=== PATIENT | male | born 1950 | race Caucasian/White ===

== ENCOUNTER 2018-04-17 14:02 | Emergency (ER) | payer OTHER ==
[~2018-04-17] VITALS: Ht 172.7 cm; Wt 78.0 kg
--- NOTE | ~2018-04-17 | EKG ---
[place], [place] ELECTROCARDIOGRAM REPORT NAME: DANNI WEBB UNIT #: [id number] ROOM: DOCTOR: EPIPHANY DRAFT REPORT BIRTHDATE: [birth year] [facility] Test Date: 2018-04-17 Test Time: 14:21:43 Pat Name: DANNI WEBB Department: Room: Gender: [employer]: : 1950 Requested By: HAZEL PAZ Order Number: [id number] Reading MD: Ravinder Manzo MD Measurements Intervals [place] Rate: 49 P: 18 AR: 178 QRS: -13 QRSD: 85 T: 10 QT: 510 QTc: 461 Interpretive Statements Sinus bradycardia Probable left atrial enlargement Left ventricular hypertrophy Electronically Signed On 04-18-2018 8:53:20 PDT by Ravinder Manzo MD CM:EKGRPT:ELECTROCARDIOGRAM REPORT [id number] HAZEL CAMACHO DRAFT REPORT HAZEL PAZ MD
[~2018-04-17 14:02] MED LIST: AMLODIPINE BESY10 MG PO; AMLODIPINE5 MG PO; ECOTRIN81 MG PO; KLOR-CON M2020 MEQ; LEVEMIR10 ML; LISINOPRIL; METFORMIN1000 MG PO; METOPROLOL; MULTIVITAMIN1 CTB; OMEGA 3 FISH OIL; SIMVASTATIN20 MG PO; VITAMIN D3
[2018-04-17 14:32] LABS: BASO % 0.5 % (0.0-1.0); EOS # 0.2 10*3/uL (0.0-0.4); EOS % 2.1 % (1.0-4.0); HEMATOCRIT 38.7 % (42.0-52.0); HEMOGLOBIN 13.7 g/dl (14.0-18.0); LYMPH % 12.9 % (27.0-41.0); MEAN CELL VOLUME 85.6 fl (80.0-94.0); MEAN CORPUSCULAR HGB 30.3 pg (27.0-31.0); MEAN CORPUSCULAR HGB CONC 35.4 g/dl (33.0-37.0); MEAN PLATELET VOLUME 10.4 fl (9.6-12.3); MONO # 0.6 10*3/uL (0.1-1.0); MONO % 8.6 % (3.0-9.0); NEUT # 5.7 10*3/uL (2.3-7.9); NEUT % 75.6 % (47.0-73.0); PLATELET COUNT AUTOMATED 209 10*3/uL (130-400); RED BLOOD COUNT 4.52 10*6/uL (4.50-5.90); RED CELL DISTRI WIDTH 12.3 % (0-14.5); WHITE BLOOD COUNT 7.5 10*3/uL (4.8-10.8)
[2018-04-17 14:41] LABS: ACT PARTIAL THROMBO TIME 25.1 SECONDS (20.8-31.5)
[2018-04-17 14:49] LABS: ALBUMIN 3.9 gm/dl (3.1-4.5); CREATININE 1.48 mg/dL (0.70-1.30); POTASSIUM 3.6 mmol/L (3.5-5.1); TOTAL PROTEIN 7.1 gm/dL (6.4-8.2); TROPONIN I 0.017 ng/ml (<0.045)
[2018-04-17] MEDS ORDERED: GOOD NEIGHBOR M25 M1 PO (15:49)
== END 2018-04-17 15:51 | disposition home or self-care (01) ==
LOC: ED 14:02
PROVIDERS: Emergency Medicine
DX: H81.12 Benign paroxysmal vertigo, left ear (principal); R00.0 Tachycardia, unspecified; Z79.84 Long term (current) use of oral hypoglycemic drugs; Z79.82 Long term (current) use of aspirin; Z79.899 Other long term (current) drug therapy; Z79.4 Long term (current) use of insulin

== ENCOUNTER → 2018-08-15 | Outpatient (CLI) | payer OTHER ==
[~2018-08-15] MED LIST changes: +GOOD NEIGHBOR M25 M1 PO; +KLOR-CON M2020 ME1 PO; +LANTUS SOL100 UNIT/1 SQ; +LISINOPRIL40 MG PO; +Lopressor25 MG PO
== END | disposition home or self-care (01) ==
LOC: US 02:25
DX: N28.1 Cyst of kidney, acquired (principal)

== ENCOUNTER → 2021-01-06 | Outpatient (CLI) | payer OTHER | END | disposition home or self-care (01) | LOC: US 00:18 | PROVIDERS: ATTEND Internal Medicine | DX: N28.1 Cyst of kidney, acquired (principal); N18.31 Chronic kidney disease, stage 3a ==

== ENCOUNTER → 2022-05-14 | Outpatient (CLI) | payer OTHER ==
[2022-05-14 12:46] LABS: HEMATOCRIT 42.4 % (42.0-52.0)
[2022-05-14 12:52] LABS: BILIRUBIN Negative (Negative); BLOOD Negative (Negative); CLARITY Clear (Clear); COLOR Dark Yellow (Yellow); GLUCOSE Trace (Negative); KETONE Trace (Negative); LEUKO ESTERASE Negative (Negative); NITRITE Negative (Negative)
[2022-05-14 13:02] LABS: CREATININE 1.81 mg/dL (0.70-1.30); POTASSIUM 3.9 mmol/L (3.5-5.1)
[2022-05-14 13:17] LABS: HYALINE CAST TNTC; RBC 0-2 rbc/hpf (0-2)
[2022-05-15 12:07] LABS: CREATININE,URINE 193.9 mg/dL (Not Estab.)
== END | disposition home or self-care (01) ==
LOC: LAB 11:49
PROVIDERS: ATTEND Internal Medicine Nephrology
DX: N18.30 Chronic kidney disease, stage 3 unspecified (principal)

== ENCOUNTER → 2022-06-29 | Outpatient (CLI) | payer OTHER ==
[2022-06-29 11:57] LABS: CREATININE 1.71 mg/dL (0.70-1.30); POTASSIUM 4.1 mmol/L (3.5-5.1)
[2022-06-29 12:03] LABS: CREATININE 1.71 mg/dL (0.70-1.30); POTASSIUM 3.9 mmol/L (3.5-5.1); TOTAL PROTEIN 7.1 gm/dL (6.4-8.2)
== END ==
LOC: LAB 11:03
PROVIDERS: Internal Medicine; ATTEND Internal Medicine Nephrology
DX: I12.9 Hypertensive chronic kidney disease with stage 1 through stage 4 chronic kidney disease, or unspecified chronic kidney disease (principal); N18.30 Chronic kidney disease, stage 3 unspecified; E78.5 Hyperlipidemia, unspecified

== ENCOUNTER → 2022-11-11 | Outpatient (CLI) | payer OTHER ==
[2022-11-11 14:00] LABS: BILIRUBIN Negative (Negative); BLOOD Negative (Negative); CLARITY Clear (Clear); COLOR Yellow (Yellow); GLUCOSE Trace (Negative); HEMATOCRIT 44.1 % (42.0-52.0); KETONE Negative (Negative); LEUKO ESTERASE Trace (Negative); NITRITE Negative (Negative); UROBILINOGEN 0.2 E.U./dl (0.0-1.0)
[2022-11-11 14:10] LABS: URINE CREATININE RANDOM 141.26 mg/dL
[2022-11-11 14:35] LABS: POTASSIUM 3.7 mmol/L (3.4-5.1)
[2022-11-11 16:04] LABS: RBC 0-2 rbc/hpf (0-2); WBC 0-2 wbc/hpf (0-5)
== END | disposition home or self-care (01) ==
LOC: LAB 13:33
PROVIDERS: ATTEND Internal Medicine Nephrology
DX: N18.30 Chronic kidney disease, stage 3 unspecified (principal)

== ENCOUNTER → 2023-03-22 | Outpatient (CLI) | payer MEDICARE ==
[2023-03-22 08:51] LABS: BASO # 0.1 10*3/uL (0.0-0.1); BASO % 0.8 % (0.0-1.0); EOS # 0.2 10*3/uL (0.0-0.4); EOS % 2.7 % (1.0-4.0); HEMATOCRIT 47.6 % (42.0-52.0); LYMPH # 1.2 10*3/uL (1.3-4.4); LYMPH % 16.7 % (27.0-41.0); MEAN CELL VOLUME 88.1 fl (80.0-94.0); MEAN CORPUSCULAR HGB 31.9 pg (27.0-31.0); MEAN CORPUSCULAR HGB CONC 36.1 g/dl (33.0-37.0); MEAN PLATELET VOLUME 10.7 fl (9.6-12.3); MONO # 0.7 10*3/uL (0.1-1.0); MONO % 9.3 % (3.0-9.0); NEUT # 5.2 10*3/uL (2.3-7.9); NEUT % 70.2 % (47.0-73.0); PLATELET COUNT AUTOMATED 192 10*3/uL (130-400); RED CELL DISTRI WIDTH 12.3 % (0-14.5); WHITE BLOOD COUNT 7.4 10*3/uL (4.8-10.8)
== END | disposition home or self-care (01) ==
LOC: LAB 08:35
PROVIDERS: Physician Assistant; ATTEND Internal Medicine
DX: D64.9 Anemia, unspecified (principal)

== ENCOUNTER → 2023-05-18 | Outpatient (CLI) | payer MEDICARE ==
[2023-05-18 10:09] LABS: HEMATOCRIT 45.3 % (42.0-52.0)
[2023-05-18 10:14] LABS: BILIRUBIN Negative (Negative); BLOOD Negative (Negative); CLARITY Clear (Clear); COLOR Yellow (Yellow); GLUCOSE 3+ (Negative); KETONE Negative (Negative); LEUKO ESTERASE Negative (Negative); NITRITE Negative (Negative); SPECIFIC GRAVITY >= 1.030 (1.001-1.030); UROBILINOGEN 0.2 E.U./dl (0.0-1.0)
[2023-05-18 10:33] LABS: POTASSIUM 3.9 mmol/L (3.4-5.1)
[2023-05-18 10:34] LABS: URINE CREATININE RANDOM 67.4 mg/dL
[2023-05-18 10:41] LABS: BACTERIA 1+; EPITHELIAL CELLS 0-2; RBC 0-2 rbc/hpf (0-2)
== END | disposition home or self-care (01) ==
LOC: LAB 09:33
PROVIDERS: ATTEND Internal Medicine
DX: N18.30 Chronic kidney disease, stage 3 unspecified (principal)

== ENCOUNTER → 2023-08-23 | Outpatient (CLI) | payer MEDICARE ==
[2023-08-23 11:47] LABS: BILIRUBIN Negative (Negative); BLOOD Negative (Negative); CLARITY Clear (Clear); COLOR Yellow (Yellow); GLUCOSE 3+ (Negative); KETONE Negative (Negative); LEUKO ESTERASE Negative (Negative); NITRITE Negative (Negative); PH 6.5 (4.5-8.0); SPECIFIC GRAVITY 1.025 (1.001-1.030); UROBILINOGEN 0.2 E.U./dl (0.0-1.0)
[2023-08-23 11:56] LABS: URINE CREATININE RANDOM 60.84 mg/dL
[2023-08-23 12:10] LABS: RBC 0-2 rbc/hpf (0-2)
[2023-08-23 12:37] LABS: VITAMIN D, 25-HYDROXY 56.1 ng/mL (30-100)
== END | disposition home or self-care (01) ==
LOC: LAB 11:10
PROVIDERS: ATTEND Surgery
DX: N18.30 Chronic kidney disease, stage 3 unspecified (principal)

== ENCOUNTER → 2023-11-04 | Outpatient (CLI) | payer MEDICARE | END | disposition home or self-care (01) | LOC: LAB 13:39 | DX: H90.3 Sensorineural hearing loss, bilateral (principal) ==

== ENCOUNTER → 2023-12-22 | Outpatient (CLI) | payer MEDICARE ==
[2023-12-22 09:03] LABS: BILIRUBIN Negative (Negative); BLOOD Negative (Negative); CLARITY Clear (Clear); COLOR Yellow (Yellow); GLUCOSE 3+ (Negative); KETONE Negative (Negative); LEUKO ESTERASE Negative (Negative); NITRITE Negative (Negative); PH 6.5 (4.5-8.0); UROBILINOGEN 0.2 E.U./dl (0.0-1.0)
[2023-12-22 09:22] LABS: URINE CREATININE RANDOM 56.08 mg/dL
[2023-12-22 09:29] LABS: POTASSIUM 3.7 mmol/L (3.4-5.1)
[2023-12-22 10:35] LABS: EPITHELIAL CELLS 0-2
== END | disposition home or self-care (01) ==
LOC: LAB 08:35
PROVIDERS: ATTEND Internal Medicine
DX: N18.30 Chronic kidney disease, stage 3 unspecified (principal)

== ENCOUNTER → 2023-12-27 | Outpatient (CLI) | payer MEDICARE ==
[2023-12-27 11:32] LABS: FREE T4 1.2 ng/dl (0.89-1.76); TOTAL PROTEIN 6.9 gm/dL (6.0-8.0)
== END | disposition home or self-care (01) ==
LOC: LAB 10:21
PROVIDERS: ATTEND Internal Medicine
DX: I10 Essential (primary) hypertension (principal); I25.10 Atherosclerotic heart disease of native coronary artery without angina pectoris; E11.9 Type 2 diabetes mellitus without complications; E78.5 Hyperlipidemia, unspecified

== ENCOUNTER → 2024-02-14 | Outpatient (CLI) | payer MEDICARE ==
[2024-02-14 11:07] LABS: POTASSIUM 4.9 mmol/L (3.4-5.1)
== END | disposition home or self-care (01) ==
LOC: LAB 10:23
PROVIDERS: Surgery; ATTEND Internal Medicine
DX: N18.32 Chronic kidney disease, stage 3b (principal)

== ENCOUNTER → 2024-04-24 | Outpatient (CLI) | payer MEDICARE ==
[2024-04-24 10:56] LABS: HEMATOCRIT 49.9 % (42.0-52.0)
[2024-04-24 11:09] LABS: BILIRUBIN Negative (Negative); BLOOD Negative (Negative); CLARITY Clear (Clear); COLOR Yellow (Yellow); GLUCOSE 3+ (Negative); KETONE Negative (Negative); LEUKO ESTERASE Negative (Negative); NITRITE Negative (Negative); PH 6.5 (4.5-8.0); UROBILINOGEN 0.2 E.U./dl (0.0-1.0)
[2024-04-24 11:19] LABS: URINE CREATININE RANDOM 44.75 mg/dL
[2024-04-24 11:21] LABS: RBC 0-2 rbc/hpf (0-2); WBC 0-2 wbc/hpf (0-5)
[2024-04-24 11:47] LABS: POTASSIUM 5.2 mmol/L (3.4-5.1); VITAMIN D, 25-HYDROXY 60.8 ng/mL (30-100)
== END | disposition home or self-care (01) ==
LOC: LAB 10:34
PROVIDERS: ATTEND Surgery
DX: N18.32 Chronic kidney disease, stage 3b (principal)

== ENCOUNTER → 2024-05-11 | Outpatient (CLI) | payer OTHER | END | disposition home or self-care (01) | LOC: MRI 01:00 | PROVIDERS: ATTEND Family Medicine | DX: G93.89 Other specified disorders of brain (principal); I63.9 Cerebral infarction, unspecified ==